=== PATIENT | female | born 1990 ===

== ENCOUNTER 2020-10-05 14:00 | Inpatient (IN) | payer OTHER ==
[~2020-10-05] VITALS: Ht 167.6 cm; Wt 74.4 kg
[~2020-10-05 14:00] MED LIST: PRENATAL TABLE1 EAC1 PO
[2020-10-16] MEDS ORDERED: KEFLEX750 MG PO (20:44)
== END 2020-10-19 17:43 | disposition home or self-care (01) | DRG 807 ==
LOC: LDR 10-17 00:37 → OB/GYN 10-17 00:37
PROVIDERS: ADMIT Obstetrics & Gynecology; ATTEND Obstetrics & Gynecology
PROC: 10E0XZZ Delivery of Products of Conception, External Approach (ICD-10-PCS; principal; 2020-10-17)
PROC: 0W8NXZZ Division of Female Perineum, External Approach (ICD-10-PCS; 2020-10-17)
PROC: 4A1HXFZ Monitoring of Products of Conception, Cardiac Rhythm, External Approach (ICD-10-PCS; 2020-10-17)
DX: O99.824 Streptococcus B carrier state complicating childbirth (principal); Z37.0 Single live birth; Z3A.39 39 weeks gestation of pregnancy; Z20.822 Contact with and (suspected) exposure to COVID-19

== ENCOUNTER 2020-10-16 19:30 | Outpatient (CLI) | payer OTHER ==
[2020-10-16] MEDS ORDERED: KEFLEX750 MG PO (20:44)
== END 2020-10-17 00:10 | disposition still patient (30) ==
LOC: OBS/DEL 19:30 → LDR 19:48 → OBS/DEL 19:49
PROVIDERS: ATTEND Obstetrics & Gynecology
DX: O47.1 False labor at or after 37 completed weeks of gestation (principal); Z3A.39 39 weeks gestation of pregnancy; Z20.822 Contact with and (suspected) exposure to COVID-19